=== PATIENT | male | born 1945 | race Caucasian/White ===

== ENCOUNTER → 2017-01-10 | Outpatient (REF) | payer MEDICARE, MEDICAID | LOC: LAB 07:52 | PROVIDERS: ATTEND Family Medicine | DX: N39.0 Urinary tract infection, site not specified (principal) | CPT/HCPCS: 87077; 87088; 87186 ==

== ENCOUNTER → 2017-01-28 | Outpatient (REF) | payer MEDICARE, MEDICAID ==
[~2017-01-28] MED LIST: AMAN100T PO; ATOR10TA PO; CEPH-507 PO; DABI150C PO; DEXT1CAP3 PO; DIPH25CA79 PO; DOCU50CA2 PO; FNST5T PO; GBPN100C PO; IBUP200C11 PO; MGX400T PO; PANT40TA2 PO; ROTI1PAT10 TD; SELE5TAB2 PO; SOTA80TA PO; TAMS0.4C2 PO
[2017-01-28 06:49] LABS: BILIRUBIN,URINE Negative (Negative); CLARITY,URINE Clear; GLUCOSE, URINE (UA) Negative (Negative); LEUKOCYTE ESTERASE ,URINE 2+ (Negative)
[2017-01-28 06:50] LABS: COLOR,URINE Dark Yellow
[2017-01-28 07:03] LABS: URINE CENTRIFUGED VOLUME 12 mL
[2017-01-28 07:04] LABS: RBC,URINE 50-100 /HPF
== END ==
LOC: LAB 06:32
PROVIDERS: ATTEND Family Medicine
DX: R82.99 Other abnormal findings in urine (principal)
CPT/HCPCS: 81003; 81015; 87077; 87088; 87186

== ENCOUNTER → 2017-02-20 | Outpatient (REF) | payer MEDICARE, MEDICAID ==
[2017-02-20 12:32] LABS: BILIRUBIN,URINE Negative (Negative); CLARITY,URINE Cloudy; COLOR,URINE Yellow; GLUCOSE, URINE (UA) Trace (Negative); LEUKOCYTE ESTERASE ,URINE 3+ (Negative); PH,URINE 5.5 (5.0 - 8.0); UROBILINOGEN,URINE 0.2 mg/dL (0.2-1.0)
[2017-02-20 12:38] LABS: URINE CENTRIFUGED VOLUME 12 mL
== END ==
LOC: LAB 11:54
PROVIDERS: ATTEND Family Medicine
DX: R82.99 Other abnormal findings in urine (principal); N39.0 Urinary tract infection, site not specified
CPT/HCPCS: 81003; 81015; 87077; 87088; 87186

== ENCOUNTER → 2017-03-09 | Outpatient (REF) | payer MEDICARE, MEDICAID ==
[2017-03-09 12:35] LABS: BILIRUBIN,URINE Negative (Negative); GLUCOSE, URINE (UA) Trace (Negative); LEUKOCYTE ESTERASE ,URINE 1+ (Negative); PH,URINE 5.5 (5.0 - 8.0); UROBILINOGEN,URINE 0.2 mg/dL (0.2-1.0)
[2017-03-09 12:37] LABS: CLARITY,URINE Slightly Cloudy; COLOR,URINE Dark Yellow
[2017-03-09 12:40] LABS: URINE CENTRIFUGED VOLUME 12 mL
[2017-03-09 12:42] LABS: YEAST,URINE 1+
== END ==
LOC: LAB 11:07
PROVIDERS: ATTEND Family Medicine
DX: N39.0 Urinary tract infection, site not specified (principal); Z79.2 Long term (current) use of antibiotics; R82.99 Other abnormal findings in urine
CPT/HCPCS: 81003; 81015; 87088